=== PATIENT | female | born 1955 | race Two or more races ===

== ENCOUNTER 2023-06-19 20:58 | Inpatient (IN) | payer OTHER ==
[~2023-06-19] VITALS: Ht 160 cm; Wt 94.3 kg
[2023-06-22] MEDS ORDERED: OMEPRAZOLE20 MG (09:41)
[2023-06-22] MEDS ORDERED: LOSARTAN POTASS25 MG (09:41)
[2023-06-22] MEDS ORDERED: FLONASE16 GM (09:41)
[2023-06-22] MEDS ORDERED: FLOVENT HFA10.6 GM (09:42)
[2023-06-24] MEDS ORDERED: AMOX-CLAV 875-1 EACH PO (16:33)
[2023-06-24] MEDS ORDERED: INTESTINEX680 M1 PO (16:34)
== END 2023-06-24 20:32 | DRG 392 ==
LOC: ER 20:58 → SEC-K 06-20 08:35 → SURH 06-20 08:35
PROVIDERS: ADMIT Internal Medicine; ATTEND Internal Medicine
DX: K57.32 Diverticulitis of large intestine without perforation or abscess without bleeding (principal); Z20.822 Contact with and (suspected) exposure to COVID-19; I10 Essential (primary) hypertension

== ENCOUNTER 2023-08-24 09:15 | Inpatient (IN) | payer OTHER ==
[~2023-08-24] VITALS: Ht 160 cm; Wt 89.8 kg
[~2023-08-24 09:15] MED LIST: AMOX-CLAV 875-1 EACH PO; FLONASE16 GM; FLOVENT HFA10.6 GM; INTESTINEX680 M1 PO; LOSARTAN POTASS25 MG; OMEPRAZOLE20 MG
[2023-08-28 08:27] LABS: HEMATOCRIT 38.5 % (36.0-45.00); HEMOGLOBIN 13.2 g/dL (12.0-15.00); MEAN CELL VOLUME 86.9 fL (80.00-100.00); MEAN CORPUSCULAR HEMOGLOBIN 29.8 pg (27.00-32.0); MEAN CORPUSCULAR HGB CONC 34.3 g/dl (32.0-36.0); PLATELET COUNT 228 K/uL (150-450); RED BLOOD COUNT 4.43 M/uL (4.00-6.00)
[2023-08-28 08:30] LABS: ALBUMIN 3.4 gm/dL (3.4-5.0); CALCIUM 8.1 mg/dL (8.5-10.1); CREATININE SERUM 0.56 mg/dL (0.55-1.02); GFR 107.34; MAGNESIUM 1.8 mg/dL (1.8-2.4); PHOSPHOROUS 2.7 mg/dL (2.5-4.9); POTASSIUM 3.97 mEq/L (3.5-5.1)
[2023-08-30 06:31] LABS: HEMATOCRIT 35.7 % (36.0-45.00); HEMOGLOBIN 12.2 g/dL (12.0-15.00); MEAN CELL VOLUME 88.5 fL (80.00-100.00); MEAN CORPUSCULAR HEMOGLOBIN 30.2 pg (27.00-32.0); MEAN CORPUSCULAR HGB CONC 34.1 g/dl (32.0-36.0); PLATELET COUNT 199 K/uL (150-450); RED BLOOD COUNT 4.04 M/uL (4.00-6.00); RED CELL DISTRIBUTION WIDTH 13.4 % (11.5-14.5)
[2023-08-30 07:35] LABS: ALBUMIN 3.1 gm/dL (3.4-5.0); BILIRUBIN TOTAL 0.45 mg/dL (0.3-1.2); CALCIUM 8.5 mg/dL (8.5-10.1); CREATININE SERUM 0.58 mg/dL (0.55-1.02); GFR 103.08; GLOBULINA 2.6 G/DL (2.4-3.5); POTASSIUM 3.62 mEq/L (3.5-5.1); TOTAL PROTEIN 5.7 gm/dL (6.4-8.2)
[2023-08-30] MEDS ORDERED: HYOSCYAMINE0.125 M1 SL (17:30)
== END 2023-08-30 19:08 | disposition home or self-care (01) | DRG 331 ==
LOC: SURH 08-27 07:00 → O/R 08-27 07:28 → SURH 08-27 09:15
PROVIDERS: Internal Medicine; ADMIT Surgery; ATTEND Surgery
PROC: 0DBP4ZZ Excision of Rectum, Percutaneous Endoscopic Approach (ICD-10-PCS; 2023-08-27)
PROC: 0DNW4ZZ Release Peritoneum, Percutaneous Endoscopic Approach (ICD-10-PCS; 2023-08-27)
PROC: 0DJD8ZZ Inspection of Lower Intestinal Tract, Via Natural or Artificial Opening Endoscopic (ICD-10-PCS; 2023-08-27)
PROC: 3E0F7SF Introduction of Other Gas into Respiratory Tract, Via Natural or Artificial Opening (ICD-10-PCS; 2023-08-27)
PROC: 0DTN4ZZ Resection of Sigmoid Colon, Percutaneous Endoscopic Approach (ICD-10-PCS; principal; 2023-08-27 07:00)
DX: K57.30 Diverticulosis of large intestine without perforation or abscess without bleeding (principal); K66.0 Peritoneal adhesions (postprocedural) (postinfection); R59.0 Localized enlarged lymph nodes; R10.32 Left lower quadrant pain; R19.7 Diarrhea, unspecified